=== PATIENT | male | born 1945 | race Caucasian/White ===

== ENCOUNTER → 2017-02-27 | Outpatient (CLI) | payer MEDICARE ==
--- NOTE | 2017-02-27 15:52 | REP ---
Low-dose lung screening CT without IV contrast: Images are presented at lung windowing only needed Comparisons are 03/21/2016, 02/24/2059, 05/21/2012. There are no lung nodules or masses, as previously. There is a new zone of discoid atelectasis versus parenchymal scarring in the right lower lobe as an interval change. There is a small zone of parenchymal scarring/atelectasis at the inferior tip of the lingula, not significantly changed. Impression: There are no lung nodules or masses. Category 1 negative low-dose lung screening CT. Annual low-dose lung screening CT is recommended. There is discoid atelectasis versus parenchymal scarring in the right lower lobe, not present previously. There is a focal zone of chronic atelectasis versus scar at the inferior tip of the lingula, unchanged from prior studies. Signed by Satish Johnson MD 02/27/2017 03:43 P
== END ==
LOC: M RAD 09:45
PROVIDERS: ATTEND Internal Medicine Pulmonary Disease
DX: J43.2 Centrilobular emphysema (principal)

== ENCOUNTER → 2017-10-23 | Outpatient (CLI) | payer MEDICARE | LOC: M RAD 09:27 | DX: I70.203 Unspecified atherosclerosis of native arteries of extremities, bilateral legs (principal) | CPT/HCPCS: 93925 ==

== ENCOUNTER → 2017-11-12 | Outpatient (CLI) | payer MEDICARE ==
[2017-11-12 14:33] LABS: BASO # 0.1 10^3/uL (0.0-0.2); BASO % 1.7 % (0.0-1.0); EOS # 0.3 10^3/uL (0.0-0.50); HEMATOCRIT 44.8 % (42.0-52.0); HEMOGLOBIN 15.8 g/dl (13.5-17.5); IMMATURE GRANULOCYTE % 0.4 % (0-3.0); LYMPH # 1.8 10^3/uL (1.5-4.5); LYMPH % 23.7 % (24.0-44.0); MEAN CORPUSCULAR HGB CONC 35.3 g/dl (32.0-36.5); MEAN CORPUSCULAR VOLUME 93.5 fl (80.0-96.0); MONO # 0.7 10^3/uL (0.0-0.8); MONO % 9.5 % (0.0-5.0); NEUTROPHILS # 4.6 10^3/uL (1.8-7.7); NEUTROPHILS % 60.7 % (36.0-66.0); PLATELET COUNT, AUTOMATED 194 10^3/uL (150-450); RED BLOOD COUNT 4.79 10^6/uL (4.30-6.10); RED CELL DISTRIBUTION WIDTH 13.1 % (11.5-14.5); WHITE BLOOD COUNT 7.6 10^3/uL (4.0-10.0)
[2017-11-12 14:51] LABS: ANION GAP 8 MEQ/L (8-16); BLOOD UREA NITROGEN 18 MG/DL (7-18); CALCIUM LEVEL 9.1 MG/DL (8.8-10.2); CARBON DIOXIDE LEVEL 26 MEQ/L (21-32); CHLORIDE LEVEL 106 MEQ/L (98-107); GLOMERULAR FILTRATION RATE > 60.0 (>42); GLUCOSE, FASTING 139 MG/DL (70-100); POTASSIUM SERUM 4.4 MEQ/L (3.5-5.1); SODIUM LEVEL 140 MEQ/L (136-145)
== END ==
LOC: M LAB 14:02
DX: I70.213 Atherosclerosis of native arteries of extremities with intermittent claudication, bilateral legs (principal); I87.393 Chronic venous hypertension (idiopathic) with other complications of bilateral lower extremity; E08.51 Diabetes mellitus due to underlying condition with diabetic peripheral angiopathy without gangrene
CPT/HCPCS: 80048

== ENCOUNTER → 2017-12-08 | Outpatient (CLI) | payer MEDICARE ==
[~2017-12-08] MED LIST: HEPARIN 1,000 UNITS/ML 10ML VIAL (FOR RADIOLOGY& DIALYSIS ONLY) As Ordered; ISOVUE-300 61% 50ML VIAL (Q9967) As Ordered; MIDAZOLAM INJ 2 MG/2 ML VIAL (J2250) As Ordered; fentaNYL 100 MCG/2 ML INJECTION (J3010) As Ordered
== END | disposition home or self-care (01) ==
LOC: M IRPRO 06:39
DX: I70.244 Atherosclerosis of native arteries of left leg with ulceration of heel and midfoot (principal); L97.429 Non-pressure chronic ulcer of left heel and midfoot with unspecified severity; I70.211 Atherosclerosis of native arteries of extremities with intermittent claudication, right leg; I70.92 Chronic total occlusion of artery of the extremities; E11.9 Type 2 diabetes mellitus without complications; I10 Essential (primary) hypertension; I25.10 Atherosclerotic heart disease of native coronary artery without angina pectoris; J44.9 Chronic obstructive pulmonary disease, unspecified; F17.210 Nicotine dependence, cigarettes, uncomplicated
CPT/HCPCS: 37224

== ENCOUNTER → 2018-02-10 | Outpatient (CLI) | payer MEDICARE | LOC: M RAD 12:56 | DX: I70.0 Atherosclerosis of aorta (principal); I70.203 Unspecified atherosclerosis of native arteries of extremities, bilateral legs | CPT/HCPCS: 93926 ==

== ENCOUNTER → 2018-03-25 | Outpatient (CLI) | payer MEDICARE ==
[~2018-03-25] MED LIST changes: +LIDOCAINE 2% MDV 20 ML VIAL As Ordered
== END | disposition home or self-care (01) ==
LOC: M IRPRO 07:46
DX: L97.529 Non-pressure chronic ulcer of other part of left foot with unspecified severity (principal); L97.519 Non-pressure chronic ulcer of other part of right foot with unspecified severity; I87.2 Venous insufficiency (chronic) (peripheral)
CPT/HCPCS: 36247

== ENCOUNTER → 2018-05-27 | Outpatient (CLI) | payer MEDICARE ==
--- NOTE | 2018-05-27 12:12 | REP ---
Bilateral lower extremity arterial Doppler ultrasound: History: Peripheral vascular disease. Intermittent claudication bilateral legs. Atherosclerosis. Sonographic findings: Ankle brachial index is 0.94 on the right and 0.67 on the left. The dorsalis pedis artery on the right is occluded. There is high velocity flow in the right common femoral artery but triphasic and biphasic relatively normal waveforms are seen throughout the right lower extremity with the exception of the distal posterior tibial artery on the right. The distal anterior tibial artery is occluded on the right. On the left, monophasic arterial wave forms are seen throughout the left lower extremity. There is a 2.8 to 1 stenosis suspected in the left mid superficial femoral artery with a more substantial, 6.8 to 1, stenosis in the popliteal artery on the left. Arterial Doppler velocity chart right lower extremity: Right CF A 8-111 cm/S Profunda 133 Proximal SFA 70 Mid SFA 111 Distal SFA 59 Popliteal 77 Proximal AT A 82 Tibioperoneal trunk 50 Proximal SAP PP CONSULTANT 29 Distal SAP PP CONSULTANT 74 Distal AT A occluded. Arterial Doppler velocity chart, left lower extremity: Left CF A 185 cm/S Profunda 39 Proximal SFA 115 Mid SFA 81-223 Distal SFA 181 - 43 Popliteal 292 Proximal AT A 23 Tibioperoneal trunk 44 Proximal SAP PP CONSULTANT 62 Distal SAP PP CONSULTANT 18 Distal AT A 36 Electronically Signed by Jamal Stevens MD 05/27/2018 12:04 P
== END ==
LOC: M RAD 09:44
PROVIDERS: ATTEND Surgery Vascular Surgery
DX: I70.213 Atherosclerosis of native arteries of extremities with intermittent claudication, bilateral legs (principal)

== ENCOUNTER → 2018-09-17 | Outpatient (CLI) | payer MEDICARE ==
[~2018-09-17] MED LIST changes: +BUPIVACAINE HCL 0.5% 10 ML VIAL As Ordered ONE; -HEPARIN 1,000 UNITS/ML 10ML VIAL (FOR RADIOLOGY& DIALYSIS ONLY) As Ordered; +HEPARIN 1,000 UNITS/ML 10ML VIAL (FOR RADIOLOGY& DIALYSIS ONLY) As Ordered ONE; +ISOVUE-300 61% 100ML VIAL (Q9967) As Ordered ONE; -ISOVUE-300 61% 50ML VIAL (Q9967) As Ordered; -LIDOCAINE 2% MDV 20 ML VIAL As Ordered; +LIDOCAINE 2% MDV 20 ML VIAL As Ordered ONE; -MIDAZOLAM INJ 2 MG/2 ML VIAL (J2250) As Ordered; +MIDAZOLAM INJ 2 MG/2 ML VIAL (J2250) As Ordered ONE; +PROTAMINE SULF INJ 50 MG/5 ML VIAL (J2720) As Ordered ONE; +diphenhydrAMINE INJ 50MG/ML VIAL (J1200) As Ordered ONE; -fentaNYL 100 MCG/2 ML INJECTION (J3010) As Ordered; +fentaNYL 100 MCG/2 ML INJECTION (J3010) As Ordered ONE
[2018-09-17 08:27] LABS: HEMATOCRIT 43.8 % (42.0-52.0); HEMOGLOBIN 14.8 g/dl (13.5-17.5); MEAN CORPUSCULAR HEMOGLOBIN 32.1 pg (27.0-33.0); MEAN CORPUSCULAR HGB CONC 33.8 g/dl (32.0-36.5); PLATELET COUNT, AUTOMATED 203 10^3/uL (150-450); RED BLOOD COUNT 4.61 10^6/uL (4.30-6.10); WHITE BLOOD COUNT 8.7 10^3/uL (4.0-10.0)
[2018-09-17 08:36] LABS: INR 1.01; PROTHROMBIN TIME 13.4 SECONDS (12.1-14.4)
[2018-09-17 08:52] LABS: BLOOD UREA NITROGEN 27 MG/DL (7-18); CARBON DIOXIDE LEVEL 23 MEQ/L (21-32); CHLORIDE LEVEL 109 MEQ/L (98-107); CREATININE FOR GFR 0.96 MG/DL (0.70-1.30); GLOMERULAR FILTRATION RATE > 60.0 (>42); GLUCOSE, FASTING 163 MG/DL (70-100); POTASSIUM SERUM 4.4 MEQ/L (3.5-5.1); SODIUM LEVEL 139 MEQ/L (136-145)
--- NOTE | 2018-10-07 08:30 | REPIR ---
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 PROCEDURE: Right common femoral arterial cannulation, selective left common femoral artery catheter placement angiogram, selective left superficial femoral artery cath placed with angiogram, selective left popliteal artery catheter placement with angiogram, selective left posterior tibial artery catheter placement with angiogram, left common femoral artery angioplasty with 6 x 200 balloon, left superficial femoral artery angioplasty with 6 x 200 balloon, left superficial femoral and popliteal artery angioplasty and stent with a 7 x 120 Sadia drug-eluting stent postdilated with a 7 x 200 balloon, left posterior tibial artery angioplasty with 4 x 200 balloon, MYNX closure of the right common femoral arteriotomy. SURGEON: Dr. Jarek Pedroza. VISCOSE DEPARTMENT WORKER: Peggy Glover and Diego Alcantara. ANESTHESIA: Local with sedation with 2 mg Versed, 100 mcg of fentanyl and 10 mL of 2% lidocaine mixed with 0.5% Marcaine, Benadryl 50 mg. FLUORO TIME: 11.8 minutes. CONTRAST: 8 mL of Isovue 300. HEPARIN: 7000 units. SEDATION TIME: 08:45 a.m. to 09:53 a.m. for a total of 68 minutes. COMPLICATIONS: None. DRAINS: None. SPECIMENS: None. IMPLANTS: 7 x 120 a little Sadia drug-eluting stent in the left superficial femoral and popliteal arteries. INDICATION: The patient is a 73-year-old male with previous angiogram and angioplasty of his left lower extremity due to nonhealing wounds who has had regression of the wounds and nonhealing. The patient will undergo a repeat left lower extremity angiogram with possible angioplasty stent and/or atherectomy. DESCRIPTION OF PROCEDURE: The patient was taken to the angiography suite, placed supine on the angiography room table and then prepped and draped in standard surgical fashion. The right common femoral artery was cannulated with a micropuncture needle. A catheter was advanced up and over the bifurcation, placed in the left common femoral artery and angiogram was performed. Catheter was advanced into the superficial femoral artery and an angiogram was performed. Catheter was advanced into the popliteal artery and an angiogram was performed. Catheter was advanced into the posterior tibial artery and an angiogram was performed. This showed significant disease along the course of the common femoral superficial femoral and popliteal arteries. The common femoral and proximal superficial femoral artery were angioplastied with a 6 x 200 balloon. There was high-grade, near occlusive stenosis in the superficial femoral and popliteal artery and this was angioplastied and stented with a 7 x 120 Sadia drug-eluting stent and post-dilated with 6 x 200 balloon. The posterior tibial artery with angioplastied with a 4 x 200 balloon. Completion angiogram showed resolution of the stenoses with excellent flow into the left lower extremity. A MYNX closure was used close the arteriotomy in the right common femoral artery with an additional 10 minutes of adjunctive pressure applied for hemostasis. Dressings were then applied. The patient tolerated the procedure well. All instrument, sponge, needle counts were correct at the end the case. There were no complications. Dr. Pedroza was present for directed the entire case. The patient was transferred to the holding area and subsequently discharged in stable condition.
== END | disposition home or self-care (01) ==
LOC: M IRPRO 07:44
PROVIDERS: ATTEND Surgery Vascular Surgery
DX: I70.248 Atherosclerosis of native arteries of left leg with ulceration of other part of lower leg (principal); L97.829 Non-pressure chronic ulcer of other part of left lower leg with unspecified severity
CPT/HCPCS: 37226; 37228; 75710; 80048; 85027; 85610; C1725; C1760; C1769; C1874; C1887; C1894; J1200; J2250; J3010; Q9967

== ENCOUNTER → 2018-12-07 | Outpatient (CLI) | payer MEDICARE ==
--- NOTE | 2018-12-07 17:08 | REP ---
Bilateral lower extremity arterial Doppler ultrasound: History: Bilateral claudication. Findings: The ankle brachial index on the right is normal at 1.2. On the left ankle-brachial index is slightly reduced at 0.8. The right distal anterior tibial artery is occluded. Moderate plaquing is observed. The left superficial femoral artery stent is noted to be patent but with evidence of distal stent stenosis suspected. Right lower extremity arterial Doppler velocity chart: Right CF A 178 cm/S Profunda 146 Proximal SFA 114 Mid SFA 98 Distal SFA 64 Popliteal 48 Proximal AT A 59 Tibioperoneal trunk 76 Proximal ASSOCIATE PROFESSOR OF THEATRE 27 Distal ASSOCIATE PROFESSOR OF THEATRE 48 Distal AT A occluded Left lower extremity arterial Doppler velocity chart: Left CF A 141 cm/S Profunda 154 Proximal SFA 147 Mid SFA 130 Distal SFA 51, stent. Popliteal 151 Proximal AT A 58 Tibioperoneal trunk 65 Proximal ASSOCIATE PROFESSOR OF THEATRE 16 Distal ASSOCIATE PROFESSOR OF THEATRE 63 Distal AT A 42 Electronically Signed by Jamal Stevens MD 12/07/2018 05:00 P
== END ==
LOC: M RAD 11:19
PROVIDERS: ATTEND Physician Assistant
DX: I70.213 Atherosclerosis of native arteries of extremities with intermittent claudication, bilateral legs (principal)

== ENCOUNTER → 2019-04-26 | Outpatient (CLI) | payer MEDICARE ==
--- NOTE | 2019-04-26 12:10 | REP ---
BILATERAL LOWER EXTREMITY DUPLEX DOPPLER ARTERIAL ULTRASOUND: Real-time sonographic ultrasound evaluation and duplex Doppler interrogation of bilateral lower extremity arterial systems is performed, and compared to prior study of 12/07/2018. On the right there is again significant scattered plaquing and narrowing, but no evidence of hemodynamically significant stenosis. There is again occlusion of the distal anterior tibial artery. There is no significant change when compared to the prior study. There are monophasic waveforms throughout the posterior tibial artery with biphasic waveforms proximal to that. On the left the distal superficial femoral artery stent is again patent, but there is new increased peak systolic velocity and significant stenosis within the distal end of the stent, peak systolic velocity increased from 30 cm/s to approximately 310 cm/s. There is turbulent flow distal to that site. Monophasic waveforms are seen from the level of the mid left superficial femoral artery distally. Biphasic waveforms are seen in the left common femoral, profunda, and proximal superficial femoral arteries. PEAK SYSTOLIC VELOCITY RIGHT LEFT Common femoral artery 164.0 cm/s 109.0 cm/s Profunda 92.0 117.0 Proximal SFA 74.0 86.0 Superficial femoral artery mid 74.0 145.0 Superficial femoral artery distal 87.0 224.0 Popliteal 68.0 310.0 Proximal anterior tibial artery 46.0 41.0 Tibioperoneal trunk 42.0 50.0 Proximal posterior tibial artery 70.0 45.0 Distal posterior tibial artery 63.0 56.0 Distal anterior tibial artery Occluded 35.0 IMPRESSION: No change in the significant scattered plaque throughout the right lower extremity arterial system, with no evidence of hemodynamically significant stenosis. Patent left distal superficial femoral artery stent with new significant stenosis at the distal end of the stent in the region of the superficial femoral and popliteal arteries. Electronically Signed by Satish Rucker MD 04/26/2019 02:55 P
== END ==
LOC: M RAD 08:51
PROVIDERS: ATTEND Physician Assistant
DX: I70.213 Atherosclerosis of native arteries of extremities with intermittent claudication, bilateral legs (principal); Z98.61 Coronary angioplasty status

== ENCOUNTER → 2019-05-07 | Outpatient (CLI) | payer MEDICARE ==
--- NOTE | 2019-05-07 14:06 | REP ---
Clinical: Lung screening. History smoking. Comparison: 02/27/2017 Technique: Axial low-dose noncontrast images from the thoracic inlet to the upper abdomen using lung screening technique. Findings: The lung cid are well-aerated. No consolidation, significant nodule or mass lesion is appreciated. No pleural effusion/reaction or pneumothorax. Tracheobronchial tree is patent. Mediastinum demonstrates mild atherosclerotic changes of the coronary arteries without cardiomegaly. Impression: Lung-RADS category I. No nodule or suspicious abnormality. Management recommendations include annual low-dose CT evaluation. Electronically Signed by Cristian Ivory MD 05/07/2019 01:57 P
== END ==
LOC: M RAD 13:19
PROVIDERS: ATTEND Internal Medicine Pulmonary Disease
DX: J43.2 Centrilobular emphysema (principal); Z87.891 Personal history of nicotine dependence

== ENCOUNTER → 2019-06-16 | Outpatient (CLI) | payer MEDICARE ==
[~2019-06-16] MED LIST changes: +ASPI81TA26 PO; -BUPIVACAINE HCL 0.5% 10 ML VIAL As Ordered ONE; +CLOP75TA2 PO; +CLOPIDOGREL 75 MG TAB As Ordered ONE; +CLOPIDOGREL 75 MG TAB PO ONE; +INSUH10VL SC; +IPRA0.00 IN; +IPRA0.00 NEB; +IPRA6SP; -ISOVUE-300 61% 100ML VIAL (Q9967) As Ordered ONE; +ISOVUE-300 61% 50ML VIAL (Q9967) As Ordered ONE; +LIDOCAINE 1% MDV 20ML VIAL As Ordered ONE; -LIDOCAINE 2% MDV 20 ML VIAL As Ordered ONE; -PROTAMINE SULF INJ 50 MG/5 ML VIAL (J2720) As Ordered ONE; +RAMI1CAP26 PO; +SIMB1SUS OP; +TRAM50TA2 PO; +TREL1AER PO; +TRES1INJ SC; +VENTAER INH; -diphenhydrAMINE INJ 50MG/ML VIAL (J1200) As Ordered ONE
[2019-06-16 07:09] LABS: HEMATOCRIT 44.2 % (42.0-52.0); HEMOGLOBIN 14.6 g/dl (13.5-17.5); MEAN CORPUSCULAR HEMOGLOBIN 32.2 pg (27.0-33.0); MEAN CORPUSCULAR VOLUME 97.6 fl (80.0-96.0); PLATELET COUNT, AUTOMATED 185 10^3/uL (150-450); RED BLOOD COUNT 4.53 10^6/uL (4.30-6.10); WHITE BLOOD COUNT 8.4 10^3/uL (4.0-10.0)
[2019-06-16 07:48] LABS: ALBUMIN 3.9 GM/DL (3.2-5.2); ALT/SGPT 21 U/L (12-78); BILIRUBIN,TOTAL 0.4 MG/DL (0.2-1.0); BLOOD UREA NITROGEN 30 MG/DL (7-18); CALCIUM LEVEL 9.3 MG/DL (8.8-10.2); CARBON DIOXIDE LEVEL 26 MEQ/L (21-32); CHLORIDE LEVEL 104 MEQ/L (98-107); CREATININE FOR GFR 1.01 MG/DL (0.70-1.30); GLOMERULAR FILTRATION RATE > 60.0 (>42); GLUCOSE, FASTING 144 MG/DL (70-100); POTASSIUM SERUM 4.6 MEQ/L (3.5-5.1); SODIUM LEVEL 138 MEQ/L (136-145); TOTAL PROTEIN 7.7 GM/DL (6.4-8.2)
--- NOTE | 2019-06-16 09:47 | ROOPDOC ---
[facility] Report Of Operation Report of Operation DATE OF PROCEDURE: 06/16/19 PREPROCEDURE DIAGNOSES: Atherosclerosis the needed vessels with nonhealing wound left heel. POSTPROCEDURE DIAGNOSES: Same. PROCEDURE: 1. Ultrasound-guided access right common femoral artery 2. Aortoiliofemoral arteriogram, and left lower extremity runoff from selection of left common femoral artery 3. Angioplasty left superficial femoral artery and popliteal artery was 6 x 200 Mounds balloon 4. Crossed total occlusion proximal left popliteal artery and placement of left SFA-proximal popliteal artery stent 5 x 100 Innova 5. Mid left SFA stent placement 6 x 100 Innova 6. Post-dilation left SFA and popliteal stents with 6 x 200 Mounds balloon 7. Crossing chronic total occlusion left posterior tibial artery and angioplasty with 2.5 x 220 Lino balloon 8. Completion arteriograms SURGEON: Jg Ferguson MD ANESTHESIA: Local anesthesia 7 mL lidocaine. Moderate intravenous conscious sedation was supervised by Dr. Ferguson. The patient was independently monitored by registered nurse a sign of the Department of radiology using automated blood pressure, EKG, and pulse oximetry. The details sedation record is permanently stored in the hospital information system. The brief sedation record is as follows: Start time 07:46, stop time 09:15, Versed 1 mg IV, fentanyl 50 g IV, heparin 5000 units IV. CONTRAST: 63 mL of Isovue-300 INDICATION FOR PROCEDURE: Mr. Foss is a very pleasant 73-year-old gentleman with known severe peripheral vascular disease status post left distal SFA stent placement by Dr. Pedroza in the past along with angioplasties repeatedly, who returns with recurrent stenosis in the left SFA, popliteal artery, and a nonhealing wound on his left heel. Risks benefits alternatives to an arteriogram potential intervention were explained to the patient and he was agreeable to proceed. Informed consent was obtained. INTERPRETATION: 1. The aortoiliofemoral segments are widely patent, but there is angulated tortuosity to the vessels. There is mild ectasia but no significant stenoses noted in the iliac segments. 2. The left common femoral artery has some ectasia and plaque, but no flow- limiting stenoses is present. The profundus patent. The SFA is ectatic throughout, and didn't the midportion proximal to the existing stent there is 50-90% stenoses segmentally. The stent is patent, but just distal to the stent in the proximal popliteal artery there is a focal occlusion with reconstitution through collateral circulation. 3. The tibial vessels have mild disease throughout, but the posterior tibial artery has 2 focal occlusions in the midportion. It is small and diminutive in size as well. There is flow distal to the occlusions through collateral circulation that provides sluggish flow to the pedal runoff. The anterior tibial arteries the best runoff to the foot. The peroneal artery is diminutive but patent. The tibioperoneal trunk is mildly stenotic as well. 4. After angioplasty and stenting of the SFA and popliteal artery, there is widely patent flow with no significant residual flow-limiting stenosis, and no embolization extravasation or dissection. 5. After angioplasty of the tibioperoneal trunk and the posterior tibial artery all the way to the ankle, there is less than 20% residual stenoses at the areas of occlusion but they are not flow-limiting. There is rapid flow to the foot and the pedal vessels fill well. REPORT OF OPERATION: The patient was brought to the angiographic suite in stable condition. His bilateral groins were prepped and draped in sterile fashion. A timeout was performed. Sedation was ministered without compensation. Local anesthesia was administered to skin and subcutaneous tissue over the right groin. A microneedle was used to access the right common femoral artery under ultrasound guidance. A wire was passed through this access under fluoroscopic guidance the needle was removed and a micro-sheath was placed over the wire using a Seldinger technique. The inner cannula and wire were removed and a Glidewire was advanced into the aorta under fluoroscopic guidance. The sheath was exchanged over the wire for a 6 Libyan sheath and flushed with saline. We then advanced a contra catheter over the wire into the distal aorta and in aortoiliofemoral arteriogram was performed. Please interpretation above. Due to the angles at the aortic bifurcation and in the left iliac system, it took quite a bit of time to advance the wire up and over the bifurcation into the left femoral system. Eventually, we were able to navigate the wire and advance the catheter. We then exchange the wire for an Amplatz superstiff wire and exchange the sheath for a 6 Fr destination sheath over the wire. The sheath was flushed with saline. After selecting the left common femoral artery runoff of the left lower extremity was performed. Please interpretation above. We then utilized a Glidewire and aerobic on catheter to cross through the SFA and the occlusion in the popliteal artery. Once safely cross to the tibial vessels, we angioplasty the proximal popliteal artery and the entire SFA with a 6 x 200 Mounds balloon for three-minute inflations. Following this, there was a marked improvement in flow in the proximal SFA with no residual stenoses dissections or flow limitation, therefore we elected not to stent the proximal SFA. There was a few areas of near occlusion in the mid SFA proximal to the existing stent which still had some flow limitation due to bulky plaque and therefore we placed a 6 x 100 Innova stent across this area with a 2 cm overlap in her existing stent. Distally, due to the more diminutive size of the popliteal artery below the knee, we placed a 5 x 100 Innova stent with overlap into the existing distal SFA stent. We then post-dilated both stance with a 6 x 200 Innova balloon. Following this, there was widely patent flow through the SFA and popliteal artery into the tibial system and no embolization extravasation or dissection were noted. We then advanced a Glidewire into the posterior tibial artery and placed aerobic on catheter over the Glidewire. We then exchange the wire for an O18 Glidewire advantage and advance this down into the distal posterior tibial artery across the ankle into the pedal vessels. We then angioplasties from the ankle to the popliteal artery and sequential angioplasties with a 2.5 x 220 Lino balloon for three-minute inflations. Following this, there is a marked improvement in flow in the posterior tibial artery and 3 vessel runoff to the foot which hopefully will help with the patient's wound healing of his left heel. The Kristyn is some for the heel is supplied by the posterior tibial artery. This concluded her procedure. R completion arteriogram showed excellent flow with no embolization extravasation or dissection. We then exchange the wire for an O35 Glidewire and exchange her sheath for short 6 Libyan sheath, and then deployed and Mynx closure device with good hemostasis. Pressure was held for 10 minutes and the patient was then taken to recovery in stable condition. ESTIMATED BLOOD LOSS: Approximately 7 mL. COMPLICATIONS: None. PLAN: We will see the patient back in a week to check his groin access site and how he is doing. We did discuss best options for wound healing, including high- protein diet excellent wound care and offloading. Hopefully the additional blood flow will be helpful to finally get his left heel to heal. We will give him a Plavix in recovery today and he will resume his Plavix dose is normal tomorrow. He can resume all his home medications. JG FERGUSON MD Jun 16, 2019 09:47
[2019-06-16 13:30] VITALS: BP 155/86
== END ==
LOC: M IRPRO 06:24
PROVIDERS: ATTEND Surgery Vascular Surgery
DX: I70.245 Atherosclerosis of native arteries of left leg with ulceration of other part of foot (principal); L97.429 Non-pressure chronic ulcer of left heel and midfoot with unspecified severity; I70.92 Chronic total occlusion of artery of the extremities
CPT/HCPCS: 37226; 37228; 37232; 75710; 80053; 85027; 99152; 99153; C1725; C1729; C1760; C1769; C1876; C1887; C1894; J2250; J3010; Q9967

== ENCOUNTER → 2019-07-19 | Outpatient (CLI) | payer MEDICARE ==
[~2019-07-19] MED LIST changes: -CLOPIDOGREL 75 MG TAB As Ordered ONE; -CLOPIDOGREL 75 MG TAB PO ONE; -HEPARIN 1,000 UNITS/ML 10ML VIAL (FOR RADIOLOGY& DIALYSIS ONLY) As Ordered ONE; -ISOVUE-300 61% 50ML VIAL (Q9967) As Ordered ONE; -LIDOCAINE 1% MDV 20ML VIAL As Ordered ONE; -MIDAZOLAM INJ 2 MG/2 ML VIAL (J2250) As Ordered ONE; -fentaNYL 100 MCG/2 ML INJECTION (J3010) As Ordered ONE
--- NOTE | 2019-07-19 14:48 | REP ---
Bilateral lower extremity arterial Doppler ultrasound: History: Atherosclerosis with intermittent claudication history of nicotine dependence. Sonographic findings: Ankle brachial indices are normal bilaterally measured at 1.36 on the right and the left. The right dorsalis pedis is occluded. The right distal anterior tibial artery is occluded and revascularized. There is a distal SFA through popliteal artery stent on the left. This appears to be patent. Moderate bilateral plaquing is seen. Right lower extremity arterial Doppler velocity chart: Right CF A 66 cm/S Profunda 97 Proximal SFA 100 Mid SFA 86 Distal SFA 57 Popliteal 46 Proximal AT A 12 Tibioperoneal trunk 49 Proximal GROUNDS WORKER 43 Distal GROUNDS WORKER 55 Distal AT A occluded / 9.3 Left lower extremity arterial Doppler velocity chart: Left CF A 90 cm/S Profunda 69 Proximal SFA 113 Mid SFA 91 Distal SFA 33 eight Popliteal 73 Proximal AT A 85 Tibioperoneal trunk 85 Proximal GROUNDS WORKER 62 Distal GROUNDS WORKER 57 Distal AT A 62 Electronically Signed by Jamal Stevens MD 07/19/2019 02:41 P
== END ==
LOC: M RAD 12:38
PROVIDERS: ATTEND Physician Assistant
DX: I70.213 Atherosclerosis of native arteries of extremities with intermittent claudication, bilateral legs (principal); Z87.891 Personal history of nicotine dependence

== ENCOUNTER → 2020-02-10 | Outpatient (CLI) | payer MEDICARE ==
--- NOTE | 2020-02-29 14:24 | REP ---
BILATERAL LOWER EXTREMITY DUPLEX DOPPLER ARTERIAL ULTRASOUND: TECHNIQUE: Real time ultrasound evaluation and duplex Doppler interrogation of the bilateral lower extremity arterial system is performed. FINDINGS: TRACIE bilaterally is 1.0. In the right lower extremity, there is significant plaquing throughout the common femoral artery, superficial femoral artery and popliteal artery with mild multifocal stenosis, approximately 2:1 in these areas. There are diffuse biphasic wave forms in these arterial structures. Below the level of the popliteal artery, there are monophasic wave forms with diffuse trickle flow. The left lower extremity demonstrates moderate plaque in the common femoral artery. Patent stents are seen in the proximal superficial femoral artery extending through the popliteal artery. There is no significant stenosis intraluminally within the stent, however monophasic wave forms are seen throughout the stent. Triphasic wave form is seen in the left common femoral artery. There are monophasic wave forms in the left calf arteries with heavily calcified vessels diffusely in the left calf. VELOCITY CHART PSV RIGHT (cm/s) PSV LEFT (cm/s) Common femoral artery 151 98.0 Profunda 101 102 Proximal SFA 88 102 Mid-SFA 123 110 Distal SFA 102 55 Popliteal 65 55 Proximal HERMAN 10 66 Tibioperoneal trunk 85 94 Proximal ENVIRONMENTAL SERVICES WORKER 34 55 Distal ENVIRONMENTAL SERVICES WORKER 49 64 Distal HERMAN 11 35 MTDD
== END ==
LOC: M RAD 07:08
PROVIDERS: ATTEND Physician Assistant
DX: I70.213 Atherosclerosis of native arteries of extremities with intermittent claudication, bilateral legs (principal)

== ENCOUNTER → 2020-04-24 | Outpatient (CLI) | payer MEDICARE ==
--- NOTE | 2020-04-24 10:38 | REP ---
INDICATION: ATHSCL IGIUGIG ARTERIES OF EXT W/INTRMT IGNACIO COMPARISON: 02/10/2020 as well as other prior exams. TECHNIQUE: Real time rucker scale and Duplex Doppler evaluation of the bilateral lower extremity arterial vasculature using linear high frequency transducer. FINDINGS: Rucker scale and duplex doppler images demonstrate significant plaque diffusely bilaterally. Multifocal mild stenosis is noted once again in the right lower extremity, less than 2-1. Biphasic waveforms are seen through the popliteal artery, with monophasic waveforms in the lower the right leg. Anterior tibial artery is not visualized on today's exam. Slight increase in luminal narrowing is suspected of the right lower extremity arterial structures compared to the prior study. On the left there are diffuse monophasic waveforms. There is a patent stent in the superficial femoral and popliteal arteries. No focal stenosis is seen, with no significant change compared to the prior study. Peak systolic velocities (cm/sec) Common femoral artery: Right 152; Left 93 Profunda femoris: Right 139; Left 117 SFA (proximal): Right 94; Left 97 SFA (mid): Right 93; Left 99 SFA (distal): Right 71; Left 32 Popliteal artery: Right 53; Left 73 HERMAN (prox.): Right not seen; Left 53 Tibioperoneal trunk: Right 74; Left 64 SHEET METAL ENGINEER (prox.): Right 119; Left 49 SHEET METAL ENGINEER (distal): Right in 72; Left 57 HERMAN (distal): Right not seen; Left 31 IMPRESSION: Compared to the prior study slight increased luminal narrowing suspected of the right lower extremity arterial structures as discussed above. No significant change left lower extremity arterial structures with patent stent in the superficial femoral and popliteal arteries. <Electronically signed by Satish Rucker > 04/24/20 [id number]
== END ==
LOC: M RAD 07:49
PROVIDERS: ATTEND Physician Assistant
DX: I70.213 Atherosclerosis of native arteries of extremities with intermittent claudication, bilateral legs (principal); I70.245 Atherosclerosis of native arteries of left leg with ulceration of other part of foot

== ENCOUNTER → 2020-05-10 | Outpatient (CLI) | payer MEDICARE ==
[~2020-05-10] MED LIST changes: +FLOM0.4C39 PO; +ISOVUE-300 61% 50ML VIAL As Ordered ONE; +LIDOCAINE 1% MDV 20ML VIAL As Ordered ONE; +MIDAZOLAM INJ 2MG/2ML VIAL (J2250 PER 1MG) As Ordered ONE; +fentaNYL 100 MCG/2 ML INJECTION (J3010) As Ordered ONE
[2020-05-10 08:59] LABS: HEMATOCRIT 41.9 % (42.0-52.0); HEMOGLOBIN 14.1 g/dl (13.5-17.5); MEAN CORPUSCULAR HGB CONC 33.7 g/dl (32.0-36.5); MEAN CORPUSCULAR VOLUME 95.2 fl (80.0-96.0); PLATELET COUNT, AUTOMATED 196 10^3/uL (150-450); WHITE BLOOD COUNT 6.7 10^3/uL (4.0-10.0)
[2020-05-10 09:39] LABS: BLOOD UREA NITROGEN 26 MG/DL (7-18); CALCIUM LEVEL 8.9 MG/DL (8.8-10.2); CARBON DIOXIDE LEVEL 25 MEQ/L (21-32); CHLORIDE LEVEL 107 MEQ/L (98-107); CREATININE FOR GFR 0.96 MG/DL (0.70-1.30); GLOMERULAR FILTRATION RATE > 60.0 (>42); GLUCOSE, FASTING 183 MG/DL (70-100); POTASSIUM SERUM 4.1 MEQ/L (3.5-5.1); SODIUM LEVEL 138 MEQ/L (136-145)
--- NOTE | 2020-05-10 11:42 | ROOPDOC ---
[facility] Report Of Operation Report of Operation DATE OF PROCEDURE: 05/10/20 PREPROCEDURE DIAGNOSES: Atherosclerosis of the [place] arteries with non-healing wound left heel POSTPROCEDURE DIAGNOSES: Same PROCEDURE: 1. Ultrasound-guided access right common femoral artery 2. Aortoiliofemoral arteriogram 3. Selection left common femoral artery and left lower extremity runoff 4. Cross occlusion left popliteal artery with distal popliteal selection and tibial runoff 5. Angioplasty left popliteal artery and superficial femoral artery with 6 x 200 Stock[place] balloon 6. Angioplasty left anterior tibial artery with 2.5 x 220 Lino balloon 7. Completion arteriogram 8. Mynx closure right common femoral artery SURGEON: Jg Ferguson MD ANESTHESIA: Local anesthesia 3 mL lidocaine. Moderate intravenous conscious sedation was supervised by Dr. Ferguson. The patient was independently monitored by a registered nurse assigned to the Department of radiology using automated blood pressure, EKG, and pulse oximetry. The details sedation record is permanently stored in the hospital information system. The following is a presedation record: Start time 10:16, stop time 11:25, Versed 1 mg IV, fentanyl 50 g IV, heparin 4000 units IV. CONTRAST: 48 mL Isovue-300 INDICATION FOR PROCEDURE: This is a very pleasant 74-year-old gentleman with long-standing peripheral vascular disease is developed a nonhealing wound on the left heel. He has a history of intervention in the past. Risks benefits and alternatives to an arteriogram and potential intervention were explained to the patient and he was agreeable to proceed. Informed consent was obtained. INTERPRETATION: 1. The aorta is widely patent and there is a patent bifurcation into the bilateral common iliac arteries, but it is a narrow bifurcation and there is a lot of tortuosity in the left iliac system. The right common iliac artery, hypogastric artery, external iliac artery are mildly ectatic but overall widely patent with no flow-limiting stenoses. The left common iliac artery, hypogastric artery, external iliac artery are ectatic but widely patent overall with no significant stenosis. There is a lot of tortuosity in the left iliac system. 2. The left common femoral arteries widely patent with good flow into the profunda and the SFA proximally. There is diffuse narrowing throughout the pre- existing mid to distal SFA stent extending into the proximal popliteal artery. Some areas are only 20-30% stenotic, others 50-60% stenotic, but there is a focal area of occlusion in the proximal popliteal artery and the existing stent. Mild stenosis is noted distal to the stent in the mid popliteal artery, 20-30% stenosis, and then the distal popliteal arteries widely patent. There is excellent runoff into left patent posterior tibial artery which arises from a true bifurcation with the left anterior tibial artery. The peroneal artery is diminutive in size and arises a few centimeters from the origin of the anterior tibial artery. The anterior tibial artery itself has some notable plaque and stenosis in the proximal half of the vessel including the origin. Distally, there is flow into dorsal pedis artery that is patent but a bit tortuous and diminutive. There is a large collateral that comes off the posterior tibial at t he ankle and crosses over and supplies additional blood flow to the mid foot. The posterior tibial artery on the left is large, and has great runoff into the foot. 3. After angioplasty of the superficial femoral artery and popliteal artery, widely patent flow with no significant residual stenosis was noted. No embolization dissection extravasation were noted. 4. After angioplasty of the proximal half of the anterior tibial artery including the origin, there is widely patent flow with no embolization dissect ion or extravasation noted. The patient has widely patent 3 vessel runoff at case close. REPORT OF OPERATION: The patient was brought to the angiographic suite in stable condition. His bilateral groins were prepped and draped in a sterile fashion. A timeout was performed. Local anesthesia was a job analyst to the skin and subcutaneous tissue over the right groin. Sedation was administered without complication. A microneedle was used to access the right common femoral artery under ultrasound guidance. A wire was passed through this access needle was removed and a 4 Estonian sheath was placed and flushed with saline. A Glidewire and flushing catheter were advanced into the distal aorta. Aortoiliofemoral arteriogram for performed. Please see interpretation above. We then attempted to go up and over the bifurcation with a stiff Glidewire in the catheter, but due to the tortuous nature of the left iliac system, this proved extremely challenging. We then exchange the wire for a floppy Glidewire and were able to advance his into the distal SFA. We still could not advance the catheter due to the tortuosity, so weak stage the catheter for a glide cath and we were able to advance this into the common femoral artery on the left. We then exchange the wire for an Amplatz superstiff wire and advanced this into the distal left SFA. We then exchange the sheath over the wire for a 6 x 45 destination sheath and flushed the sheath with saline. We then exchange the wire again for the original stiff Glidewire. We were able to cross through to the distal popliteal artery through the occlusion, and we then angioplastied with a 6 x 200 Stockton balloon from the mid popliteal artery through to the mid SFA stents. After three-minute inflations, we still noted a little bit of residual stenosis in the mid popliteal artery and at the proximal stents, and repeat angioplasty was performed. Following this, there is widely patent inflow through the stent in the popliteal artery into the distal vessels. We then exchange the wire for 018 Glidewire advantage and advance this down to the popliteal artery. We had trouble crossing into the anterior tibial artery due to plaque at the origin. A glide cath was advanced over the wire the wire was removed and a quick tibial arteriogram was performed. Following this, we were able to direct the wire and the origin of the anterior tibial artery safely and cross through to the distal vessel. A 2.5 x 220 Lino balloon was used angioplasty the proximal and mid left anterior tibial artery for three-minute inflations following this the patient had widely patent 3 vessel runoff to the foot. Although the peroneal artery is diminutive it is patent. There is no embolization dissection or extravasation noted. We then exchange the sheath over an O35 wire for short 6 Estonian sheath in a Mynx closure device was deployed without convocation. Good hemostasis was noted. Pressure was held for 5 minutes and sterile dressings were applied. The patient was taken to recovery in stable condition. He tolerated the sedation and the procedure well. ESTIMATED BLOOD LOSS: Approximately 2 mL. COMPLICATIONS: None. PLAN: We will see the patient back in a week to check his groin access site and his perfusion. Okay to resume home diet and medications. No lifting greater than 10 pounds or strenuous exercise for 72 hours. Okay to resume Plavix in the morning. We appreciate the opportunity to participate in the care of this patient. JG FERGUSON MD May 10, 2020 11:42
[2020-05-10 14:30] VITALS: BP 156/83
== END ==
LOC: M IRPRO 08:07
PROVIDERS: ATTEND Surgery Vascular Surgery
DX: I70.248 Atherosclerosis of native arteries of left leg with ulceration of other part of lower leg (principal); I70.213 Atherosclerosis of native arteries of extremities with intermittent claudication, bilateral legs; L97.429 Non-pressure chronic ulcer of left heel and midfoot with unspecified severity; I70.92 Chronic total occlusion of artery of the extremities; I77.1 Stricture of artery; E11.51 Type 2 diabetes mellitus with diabetic peripheral angiopathy without gangrene; F32.9 Major depressive disorder, single episode, unspecified; F41.9 Anxiety disorder, unspecified; I11.0 Hypertensive heart disease with heart failure; I25.10 Atherosclerotic heart disease of native coronary artery without angina pectoris; J44.9 Chronic obstructive pulmonary disease, unspecified; M19.90 Unspecified osteoarthritis, unspecified site; Z79.82 Long term (current) use of aspirin; Z79.899 Other long term (current) drug therapy; Z88.0 Allergy status to penicillin; Z88.8 Allergy status to other drugs, medicaments and biological substances
CPT/HCPCS: 37224; 37228; 75630; 80048; 85027; 99152; 99153; C1725; C1729; C1760; C1769; C1887; C1894; J1644; J2250; J3010; Q9967

== ENCOUNTER → 2020-07-24 | Outpatient (CLI) | payer MEDICARE ==
[~2020-07-24] MED LIST changes: -ISOVUE-300 61% 50ML VIAL As Ordered ONE; -LIDOCAINE 1% MDV 20ML VIAL As Ordered ONE; -MIDAZOLAM INJ 2MG/2ML VIAL (J2250 PER 1MG) As Ordered ONE; -fentaNYL 100 MCG/2 ML INJECTION (J3010) As Ordered ONE
--- NOTE | 2020-07-24 16:10 | REP ---
INDICATION: ATHSCL ARTERIES VERONICA W/ CLAUDICATION. On May 10, 2020 the patient underwent left popliteal artery and cyst left superficial femoral artery angioplasty and left anterior tibial artery angioplasty. COMPARISON: Comparison study April 24, 2020.. TECHNIQUE: Bilateral lower extremity arterial Doppler ultrasound: FINDINGS: The ankle brachial indices could not be obtained due to calcified noncompressible vessels and left ankle edema. Extensive plaquing is observed bilaterally. Monophasic waveforms are noted at and distal to the distal superficial femoral artery on the right and throughout the visualized left lower extremity arterial tree. Multiple mild stenoses are seen in the left lower extremity. A 7-1 velocity is the ratio stenosis is observed in the distal left posterior tibial artery. Right lower extremity arterial Doppler velocity chart: Distal aorta PSV 62 cm/S Right common iliac artery PSV 92 cm/S Right EIA PSV 176 cm/S RESPIRATORY CARE INSTRUCTOR 124 Profundal 138 Proximal SFA 108 Mid SFA 83/112 Distal SFA 50 Popliteal 76 Proximal HERMAN 17 Tibial-peroneal trunk 52 Proximal AREA CLEANER 27 Distal AREA CLEANER 87 Distal HERMAN not seen Left lower extremity arterial Doppler velocity chart: Distal aorta PSV 62 cm/S Left SHE PSV 86 cm/S Left EIA 142 Left RESPIRATORY CARE INSTRUCTOR 147 Profundal 204 Proximal SFA 101/130 Mid SFA 88 Distal SFA 98/127/50 Popliteal 140/172 patent stent. Proximal HERMAN 105 Tibial-peroneal trunk 99 Proximal AREA CLEANER 16 Distal AREA CLEANER 112 Distal HERMAN 55 IMPRESSION: Atherosclerotic disease as noted above. Monophasic waveforms throughout the left lower extremity and below the distal SFA on the right. Multiple stenoses seen on the left. No occlusion is seen on the left. Distal anterior tibial artery on the right not seen. <Electronically signed by Patricio Stevens > 07/24/20 [id number]
== END ==
LOC: M RAD 09:38
PROVIDERS: ATTEND Surgery Vascular Surgery
DX: I70.213 Atherosclerosis of native arteries of extremities with intermittent claudication, bilateral legs (principal); I86.8 Varicose veins of other specified sites

== ENCOUNTER → 2021-01-09 | Outpatient (CLI) | payer MEDICARE ==
--- NOTE | 2021-01-09 12:22 | REP ---
INDICATION: HX OF NICOTINE DEPENDENCE. COMPARISON: Low-dose lung screening chest CTs dated 03/21/2016, 02/27/2017 and 05/07/2019. TECHNIQUE: The study is performed without IV contrast. Images are presented at lung windowing only. FINDINGS: There no lung masses or nodules. There are no infiltrates or pleural effusions. The discoid atelectasis identified in the left lower lobe on 02/27/2017 has resolved. The small focal zone of atelectasis at the inferior tip of the lingula identified on 02/27/2017 has resolved. IMPRESSION: Category [address] low-dose lung screening CT of the chest. There are no lung nodules or masses. Depending on risk factors annual follow-up low-dose lung screening CT of the chest is recommended. <Electronically signed by Satish Johnson > 01/09/21 [id number]
== END ==
LOC: M RAD 11:35
PROVIDERS: ATTEND Internal Medicine Pulmonary Disease
DX: Z12.2 Encounter for screening for malignant neoplasm of respiratory organs (principal); Z87.891 Personal history of nicotine dependence

== ENCOUNTER → 2021-02-26 | Outpatient (CLI) | payer MEDICARE ==
--- NOTE | 2021-02-26 10:20 | REP ---
INDICATION: ATHSCL R[place]-SPARKS ARTERIES. COMPARISON: July 24, 2020. TECHNIQUE: Bilateral lower extremity arterial Doppler sonography. FINDINGS: Ankle brachial indices could not be performed due to calcified vessels and ankle swelling. The right anterior tibial artery is occluded. There is a 2-1 velocity ratio stenosis in the right posterior tibial artery. Monophasic arterial Doppler waveforms are noted at and distal to the right popliteal artery. On the left monophasic arterial Doppler waveforms are noted throughout the leg distal to the proximal superficial femoral. There is a 9-1 velocity ratio stenosis in the left popliteal artery. Patient reports 3 stents in the left popliteal artery. Right lower extremity arterial Doppler velocity chart: Right FORMS BUILDER PSV 140 cm/S Profundal 111 Proximal SFA 107 Mid SFA 80 Distal SFA 52 Popliteal 77 Proximal HERMAN occluded Tibial-peroneal trunk 60 Proximal ACCELERATOR SYSTEMS DIRECTOR 30 Distal ACCELERATOR SYSTEMS DIRECTOR 61 Distal HERMAN occluded Left lower extremity arterial Doppler velocity chart: Left FORMS BUILDER PSV 91 cm/S Profundal 96 Proximal SFA 88 Mid SFA 82 Distal SFA 39 Popliteal 56/497/173 Proximal HERMAN 84 Tibial-peroneal trunk 72 Proximal ACCELERATOR SYSTEMS DIRECTOR 40 Distal ACCELERATOR SYSTEMS DIRECTOR 62 Distal HERMAN 50 IMPRESSION: Heavily calcified vessels. Occlusion of the right anterior tibial artery. Evidence of high-grade stenosis in the popliteal segment on the left. <Electronically signed by Patricio Stevens > 02/26/21 1018
== END ==
LOC: M RAD 08:30
PROVIDERS: ATTEND Surgery Vascular Surgery
DX: I70.213 Atherosclerosis of native arteries of extremities with intermittent claudication, bilateral legs (principal)

== ENCOUNTER → 2021-03-22 | Outpatient (CLI) | payer MEDICARE ==
[~2021-03-22] MED LIST changes: +ISOVUE-300 61% 50ML VIAL As Ordered ONE; +LIDOCAINE 1% MDV 20ML VIAL As Ordered ONE; +MIDAZOLAM INJ 2MG/2ML VIAL (J2250 PER 1MG) As Ordered ONE; +NS 1,000 ML IV SCH; +fentaNYL 100 MCG/2 ML INJECTION (J3010) As Ordered ONE
[2021-03-22 12:32] LABS: BLOOD UREA NITROGEN 18 MG/DL (7-18); CALCIUM LEVEL 8.9 MG/DL (8.8-10.2); CARBON DIOXIDE LEVEL 27 MEQ/L (21-32); CHLORIDE LEVEL 109 MEQ/L (98-107); CREATININE FOR GFR 0.87 MG/DL (0.70-1.30); GLOMERULAR FILTRATION RATE > 60.0 (>42); GLUCOSE, FASTING 193 MG/DL (70-100); POTASSIUM SERUM 4.4 MEQ/L (3.5-5.1); SODIUM LEVEL 140 MEQ/L (136-145)
--- NOTE | 2021-03-22 16:01 | ROOPDOC ---
[facility] Report Of Operation Report of Operation DATE OF PROCEDURE: 03/22/21 PREPROCEDURE DIAGNOSES: Nonhealing left heel ulcer POSTPROCEDURE DIAGNOSES: Nonhealing left heel ulcer PROCEDURE PERFORMED: 1. Left distal SFA atherectomy and Angioplasty with Drug Coated Balloon 2. Selective Catheterization, initial, 3rd order 3. Left leg Angiogram 4. Ultrasound Guided Percutaneous Entry SURGEON: Risa Castellon MD ANESTHESIA: Local and sedation ESTIMATED BLOOD LOSS: Approximately 10 mL. COMPLICATIONS: None FINDINGS: Improved flow to foot DESCRIPTION OF PROCEDURE: Patient was brought to the IR suite and placed on the IR table in supine position. No recent angiographic images of the aorta or extremity were performed and therefore a diagnostic angiogram was performed prior to any endovascular intervention. After anesthesia was administered, the patient's groins were prepped and draped in standard surgical fashion. Under ultrasound guidance, percutaneous entry into the right common femoral artery was performed with a micropuncture needle. Over guidewire exchange a microsheath was inserted and a 0.035" Glidewire was passed into the aorta. The microsheath was then exchanged for 5 Fr sheath and a flush catheter was passed through the sheath and into the aorta. An aortogram was performed and revealed patent bilateral renal arteries, normal sized aorta and patent bilateral iliac artery runoff. The aortic bifurcation was engaged and the Glidewire and catheter were passed to the distal left external iliac artery. Serial angiography of the leg was then performed and revealed a patent common femoral artery, profunda femoris artery and proximal superficial femoral artery. The catheter was then advanced into the proximal SFA and angiography revealed a multiple stent placement from the proximal SFA to mid popliteal artery (just above the tibial plateau) with near occlusive in-stent restenosis at the entrance to Jeremy's canal. Below the knee, there was a 3 vessel runoff to the foot via the posterior tibial artery being the main outflow vessel. The patient was administered a bolus of IV Heparin and additional doses were given throughout the case to ensure adequate anticoagulation. Over guidewire exchange and with fluoroscopic guidance the short 5 Fr sheath was replaced with a long 6 Fr Evangelist sheath and crossing catheter. Using the crossing catheter and guidewire, the SFA occlusion was traversed and the wire and catheter were placed in the proximal posterior tibial artery. The guidewire was exchanged for a 6mm Spider filter and placed in the same location. The guiding catheter was then removed and exchanged for a Medtronic atherectomy device. Atherectomy in all four quadrants of the diseased segment of the distal SFA was performed. Repeat angiography revealed moderate improvement but with some persistent disease. The spider filter was exchanged for the 0.035 Glidewire and angioplasty of the diseased SFA was performed with a 6 mm x 80 mm Medtronic Drug Coated Balloon. Post-angioplasty angiography revealed resolution of the treated segment with brisk flow through the treated segment and good flow into the foot. No further intervention was performed. Over fluoroscopic guidance, the sheath was retracted over the aortic bifurcation and removed. A Perclose closure device was then used to close the puncture site and a sterile dressing was then placed. RISA CASTELLON MD Mar 22, 2021 16:01
[2021-03-22 17:45] VITALS: BP 141/77
== END ==
LOC: M IRPRO 11:18
PROVIDERS: ATTEND Surgery Vascular Surgery
DX: I70.245 Atherosclerosis of native arteries of left leg with ulceration of other part of foot (principal); L97.429 Non-pressure chronic ulcer of left heel and midfoot with unspecified severity; Z79.82 Long term (current) use of aspirin; Z88.0 Allergy status to penicillin; Z88.8 Allergy status to other drugs, medicaments and biological substances
CPT/HCPCS: 37225; 75630; 75774; 80048; 99152; 99153; C1714; C1760; C1769; C1884; C1887; C1894; C2623; J1642; J1644; J2250; J3010; Q9967

== ENCOUNTER → 2021-04-25 | Outpatient (CLI) | payer MEDICARE ==
[~2021-04-25] MED LIST changes: -ISOVUE-300 61% 50ML VIAL As Ordered ONE; -LIDOCAINE 1% MDV 20ML VIAL As Ordered ONE; -MIDAZOLAM INJ 2MG/2ML VIAL (J2250 PER 1MG) As Ordered ONE; -NS 1,000 ML IV SCH; -fentaNYL 100 MCG/2 ML INJECTION (J3010) As Ordered ONE
--- NOTE | 2021-04-25 14:31 | REP ---
INDICATION: ATHEROSCLEROSIS, PVD COMPARISON: None. TECHNIQUE: Real-time sonographic evaluation of the lower extremity arteries with Doppler bilateral FINDINGS: All numeric values represent peak systolic velocities in cm/SEC On the right: LABEL DRIER: 107.8 triphasic Profunda: 101.1 biphasic SFA proximal: 67.9 biphasic SFA mid: 74.2 biphasic SFA distal: 27.6 biphasic Popliteal: 46.5 biphasic Tibioperoneal trunk: 62.5 biphasic OPERATIONS PROFESSIONAL proximal: 95.8 biphasic OPERATIONS PROFESSIONAL distal: 72.8 biphasic Peroneal proximal: 87.3 biphasic Peroneal distal: Not seen HERMAN proximal: 17.8 monophasic HERMAN distal occluded On the left: LABEL DRIER: 105.8 biphasic Profunda: 93.3 triphasic SFA proximal: 91.5 biphasic SFA mid: 121.1 biphasic SFA distal: 43.9 biphasic Popliteal: 101.6 biphasic Tibioperoneal trunk: 80.0 biphasic OPERATIONS PROFESSIONAL proximal: 67.2 biphasic OPERATIONS PROFESSIONAL distal: 89.0 biphasic Peroneal proximal: 103.5 biphasic Peroneal distal: 79.6 biphasic HERMAN proximal: 62.1 biphasic HERMAN distal: 46.4 biphasic The ankle brachial index was not obtainable bilaterally Heavily calcified vessels were seen bilaterally. No stenosis was identified bilaterally IMPRESSION: As above <Electronically signed by Enrico Bustamante > 04/25/21 1531
== END ==
LOC: M RAD 12:30
PROVIDERS: ATTEND Surgery Vascular Surgery
DX: I70.244 Atherosclerosis of native arteries of left leg with ulceration of heel and midfoot (principal)

== ENCOUNTER → 2021-06-28 | Outpatient (REF) | payer MEDICARE ==
[2021-06-28 12:27] LABS: BASO # 0.1 10^3/uL (0.0-0.2); EOS # 0.3 10^3/uL (0.0-0.5); EOS % 3.8 % (0.0-3.0); HEMATOCRIT 44.7 % (42.0-52.0); LYMPH # 1.3 10^3/uL (1.5-5.0); LYMPH % 18.3 % (24.0-44.0); MEAN CORPUSCULAR HEMOGLOBIN 32.8 pg (27.0-33.0); MEAN CORPUSCULAR HGB CONC 33.6 g/dl (32.0-36.5); MEAN CORPUSCULAR VOLUME 97.6 fl (80.0-96.0); MONO # 0.7 10^3/uL (0.0-0.8); MONO % 10.4 % (2.0-8.0); NEUTROPHILS # 4.6 10^3/uL (1.5-8.5); NEUTROPHILS % 65.2 % (36.0-66.0); PLATELET COUNT, AUTOMATED 217 10^3/uL (150-450); RED BLOOD COUNT 4.58 10^6/uL (4.30-6.10); WHITE BLOOD COUNT 7.1 10^3/uL (4.0-10.0)
[2021-06-28 13:07] LABS: ERYTHROCYTE SEDIMENTATION RATE 33 mm/hr (0-20)
[2021-06-28 14:24] LABS: ALBUMIN 3.8 GM/DL (3.2-5.2); ALT/SGPT 19 U/L (12-78); BILIRUBIN,TOTAL 0.4 MG/DL (0.2-1.0); BLOOD UREA NITROGEN 22 MG/DL (7-18); CALCIUM LEVEL 9.3 MG/DL (8.8-10.2); CARBON DIOXIDE LEVEL 26 MEQ/L (21-32); CHLORIDE LEVEL 105 MEQ/L (98-107); CREATININE FOR GFR 0.84 MG/DL (0.70-1.30); GLOMERULAR FILTRATION RATE > 60.0 (>42); GLUCOSE, FASTING 201 MG/DL (70-100); POTASSIUM SERUM 4.5 MEQ/L (3.5-5.1); SODIUM LEVEL 138 MEQ/L (136-145); TOTAL PROTEIN 7.9 GM/DL (6.4-8.2)
[2021-06-29 12:25] LABS: TOTAL 25(OH) VITAMIN D 21.9 NG/ML (30.0-100.0)
[2021-06-29 12:36] LABS: HEPATITIS B SURFACE ANTIGEN NEGATIVE (NEGATIVE)
[2021-06-29 13:04] LABS: HEPATITIS C VIRUS ABY INDEX < 0.0 INDEX (<0.8)
[2021-07-01 15:08] LABS: ANGIOTENSIN 1 CONVERTING ENZYM 17 U/L (14-82); HEPATITIS B CORE ANTIBODY IGG Negative (Negative); VITAMIN D 1,25 DIHYDROXY 28.8 pg/mL (19.9-79.3)
== END ==
LOC: M SFHCRHEU 08:28
PROVIDERS: ATTEND Internal Medicine Rheumatology
DX: R76.8 Other specified abnormal immunological findings in serum (principal); M25.50 Pain in unspecified joint; Z79.899 Other long term (current) drug therapy

== ENCOUNTER → 2021-11-27 | Outpatient (REF) | payer MEDICARE ==
[2021-11-27 13:52] LABS: APPEARANCE, URINE CLEAR (CLEAR); BACTERIA, URINE AUTO NEGATIVE (NEGATIVE); BILIRUBIN, URINE AUTO NEGATIVE (NEGATIVE); BLOOD, URINE BLOOD 1+ (NEGATIVE); COLOR, URINE YELLOW (YELLOW); GLUCOSE, URINE (UA) AUTO NEGATIVE (NEGATIVE); KETONE, URINE AUTO NEGATIVE (NEGATIVE); LEUKOCYTE ESTERASE, URINE AUTO NEGATIVE (NEGATIVE); NITRITE, URINE AUTO NEGATIVE (NEGATIVE); PROTEIN, URINE AUTO NEGATIVE (NEGATIVE); RBC, URINE AUTO 0 /HPF (0-3); SQUAMOUS EPITHELIAL CELL UR AU 0 /HPF (0-6); UROBILINOGEN, URINE AUTO 0.2 mg/dL (0.0-2.0); WBC, URINE AUTO 0 /HPF (0-3)
== END ==
LOC: M SMT 13:00
PROVIDERS: ATTEND Urology
DX: R39.9 Unspecified symptoms and signs involving the genitourinary system (principal)

== ENCOUNTER → 2022-01-23 | Outpatient (CLI) | payer MEDICARE ==
[~2022-01-23] MED LIST changes: +OXYB5TAB10 PO
== END ==
LOC: M LABSMTC 10:04
PROVIDERS: ATTEND Anesthesiology
DX: Z01.818 Encounter for other preprocedural examination (principal); Z11.52 Encounter for screening for COVID-19

== ENCOUNTER 2022-01-28 07:15 | Day surgery (SDC) | payer MEDICARE ==
[~2022-01-28] VITALS: Ht 180.3 cm; Wt 93.4 kg
[~2022-01-28 07:15] MED LIST changes: +BSS IRRIG/VANCO(10MG)/TOBRA(5MG)/EPINEPH(1:1000-0.5CC)500ML BAG-ORONLY IR ONE; +LIDOCAINE 1% SDV 5ML VIAL As Ordered ONE; +LIDOCAINE 3.5 % 1ML OPHTH TOPICAL GEL OU ONE; +OFLOXACIN 0.3 % (OCUFLOX) OPTH SOL 5ML OS ONE; +PHENYLEPHRINE HCL 10 % OPHTH. SOL 5ML OS PRN
[2022-01-28] MEDS: CYCLOPENTOLATE 1% OPHTH SOLN 2 ML BTL OS SCH ×3 (08:21→08:38)
[2022-01-28] MEDS: TROPICAMIDE 1% OPHTH SOLN 2ML OS SCH ×3 (08:21→08:39)
[2022-01-28] MEDS: PHENYLEPHRINE 2.5% OPHTH SOL 2ML OS SCH ×3 (08:21→08:38)
[2022-01-28] MEDS ORDERED: MIDAZOLAM INJ 2MG/2ML VIAL (J2250 PER 1MG) As Ordered ONE (09:17)
[2022-01-28] MEDS ORDERED: fentaNYL 100 MCG/2 ML INJECTION As Ordered ONE (09:17)
[2022-01-28 09:50] VITALS: BP 128/79
== END 2022-01-28 09:52 | disposition home or self-care (01) ==
LOC: M SDC 07:15
PROVIDERS: ATTEND Ophthalmology
DX: H25.12 Age-related nuclear cataract, left eye (principal); E11.3299 Type 2 diabetes mellitus with mild nonproliferative diabetic retinopathy without macular edema, unspecified eye; E11.69 Type 2 diabetes mellitus with other specified complication; R29.818 Other symptoms and signs involving the nervous system; M19.90 Unspecified osteoarthritis, unspecified site; M54.50 Low back pain, unspecified; E78.2 Mixed hyperlipidemia; J44.9 Chronic obstructive pulmonary disease, unspecified; I10 Essential (primary) hypertension; I25.10 Atherosclerotic heart disease of native coronary artery without angina pectoris; Z79.899 Other long term (current) drug therapy; Z79.4 Long term (current) use of insulin; Z79.02 Long term (current) use of antithrombotics/antiplatelets; Z79.82 Long term (current) use of aspirin; Z88.0 Allergy status to penicillin; Z88.8 Allergy status to other drugs, medicaments and biological substances; Z87.891 Personal history of nicotine dependence; Z98.61 Coronary angioplasty status
CPT/HCPCS: 66984; J2250; J3010; V2632

== ENCOUNTER → 2022-02-07 | Outpatient (CLI) | payer MEDICARE ==
[~2022-02-07] MED LIST changes: -BSS IRRIG/VANCO(10MG)/TOBRA(5MG)/EPINEPH(1:1000-0.5CC)500ML BAG-ORONLY IR ONE; -LIDOCAINE 1% SDV 5ML VIAL As Ordered ONE; -LIDOCAINE 3.5 % 1ML OPHTH TOPICAL GEL OU ONE; -OFLOXACIN 0.3 % (OCUFLOX) OPTH SOL 5ML OS ONE; -PHENYLEPHRINE HCL 10 % OPHTH. SOL 5ML OS PRN
== END ==
LOC: M RAD 11:08
PROVIDERS: ATTEND Internal Medicine Pulmonary Disease
DX: Z87.891 Personal history of nicotine dependence (principal)

== ENCOUNTER → 2022-04-02 | Outpatient (REF) | payer MEDICARE ==
[~2022-04-02] MED LIST changes: +LATA0.0015 OU
[2022-04-02 14:49] LABS: APPEARANCE, URINE MANUAL CLEAR (CLEAR); COLOR, URINE MANUAL LT YELLOW (YELLOW); SPECIFIC GRAVITY,URINE MANUAL 1.015 (1.002-1.035)
[2022-04-02 14:50] LABS: BILIRUBIN, URINE MANUAL NEGATIVE (NEGATIVE); BLOOD URINE MANUAL NEGATIVE (NEGATIVE); GLUCOSE, URINE (UA) MANUAL NEGATIVE (NEGATIVE); KETONE, URINE MANUAL NEGATIVE (NEGATIVE); LEUKOCYTE ESTERASE, URINE MAN NEGATIVE (NEGATIVE); NITRITE, URINE MANUAL NEGATIVE (NEGATIVE); PROTEIN, URINE MANUAL NEGATIVE (NEGATIVE); UROBILINOGEN, URINE MANUAL NORMAL (NORMAL)
== END ==
LOC: M SMT 12:51
PROVIDERS: ATTEND Urology
DX: R35.0 Frequency of micturition (principal)

== ENCOUNTER → 2022-04-10 | Outpatient (CLI) | payer MEDICARE | LOC: M LABSMTC 10:47 | PROVIDERS: ATTEND Anesthesiology | DX: Z01.812 Encounter for preprocedural laboratory examination (principal); Z20.822 Contact with and (suspected) exposure to COVID-19 ==

== ENCOUNTER 2022-04-15 10:04 | Day surgery (SDC) | payer MEDICARE ==
[~2022-04-15] VITALS: Ht 180.3 cm; Wt 92.5 kg
[~2022-04-15 10:04] MED LIST changes: +BSS IRRIG/VANCO(10MG)/TOBRA(5MG)/EPINEPH(1:1000-0.5CC)500ML BAG-ORONLY IR ONE; +CYCLOPENTOLATE 1% OPHTH SOLN 2 ML BTL OD SCH; +LIDOCAINE 1% SDV 5ML VIAL As Ordered ONE; +LIDOCAINE 3.5 % 1ML OPHTH TOPICAL GEL OU ONE; +MIDAZOLAM INJ 2MG/2ML VIAL (J2250 PER 1MG) As Ordered ONE; +OFLOXACIN 0.3 % (OCUFLOX) OPTH SOL 5ML OD ONE; +PHENYLEPHRINE 2.5% OPHTH SOL 2ML OD SCH; +PHENYLEPHRINE HCL 10 % OPHTH. SOL 5ML OD PRN; +TROPICAMIDE 1% OPHTH SOLN 2ML OD SCH; +fentaNYL 100 MCG/2 ML INJECTION As Ordered ONE
[2022-04-15 11:24] VITALS: BP 147/74
== END 2022-04-15 11:45 | disposition home or self-care (01) ==
LOC: M SDC 10:04
PROVIDERS: ATTEND Ophthalmology
DX: H25.11 Age-related nuclear cataract, right eye (principal); H57.03 Miosis; I10 Essential (primary) hypertension; E11.42 Type 2 diabetes mellitus with diabetic polyneuropathy; I25.10 Atherosclerotic heart disease of native coronary artery without angina pectoris; M19.90 Unspecified osteoarthritis, unspecified site; J44.9 Chronic obstructive pulmonary disease, unspecified; N32.81 Overactive bladder; Z95.5 Presence of coronary angioplasty implant and graft; Z79.899 Other long term (current) drug therapy; Z79.82 Long term (current) use of aspirin; Z79.02 Long term (current) use of antithrombotics/antiplatelets; Z79.4 Long term (current) use of insulin; Z79.891 Long term (current) use of opiate analgesic; Z88.0 Allergy status to penicillin; Z88.8 Allergy status to other drugs, medicaments and biological substances
CPT/HCPCS: 66982; J2250; J3010; V2632

== ENCOUNTER → 2022-06-17 | Outpatient (CLI) | payer MEDICARE ==
[~2022-06-17] MED LIST changes: -BSS IRRIG/VANCO(10MG)/TOBRA(5MG)/EPINEPH(1:1000-0.5CC)500ML BAG-ORONLY IR ONE; -CYCLOPENTOLATE 1% OPHTH SOLN 2 ML BTL OD SCH; -LIDOCAINE 1% SDV 5ML VIAL As Ordered ONE; -LIDOCAINE 3.5 % 1ML OPHTH TOPICAL GEL OU ONE; -MIDAZOLAM INJ 2MG/2ML VIAL (J2250 PER 1MG) As Ordered ONE; -OFLOXACIN 0.3 % (OCUFLOX) OPTH SOL 5ML OD ONE; -PHENYLEPHRINE 2.5% OPHTH SOL 2ML OD SCH; -PHENYLEPHRINE HCL 10 % OPHTH. SOL 5ML OD PRN; -TROPICAMIDE 1% OPHTH SOLN 2ML OD SCH; -fentaNYL 100 MCG/2 ML INJECTION As Ordered ONE
== END ==
LOC: M RAD 11:54
PROVIDERS: ATTEND Surgery Vascular Surgery
DX: I70.244 Atherosclerosis of native arteries of left leg with ulceration of heel and midfoot (principal)

== ENCOUNTER 2023-03-12 07:45 | Day surgery (SDC) | payer MEDICARE ==
[~2023-03-12] VITALS: Ht 180.3 cm; Wt 89.0 kg
[~2023-03-12 07:45] MED LIST changes: +ALPH600C PO; +CLIN1GEL22 TOP; +EZET10TA21 PO; +IPRA0.00 INH; +MEMA1TAB3 PO; +NS 1,000 ML IV ONE; -OXYB5TAB10 PO; +OXYB5TAB11 PO; +TRES1INJ2 SC; +VITMTA PO
[2023-03-12 09:42] VITALS: BP 118/61; O2SAT 95
== END 2023-03-12 10:07 | disposition home or self-care (01) ==
LOC: M OPP 07:45
PROVIDERS: ATTEND Internal Medicine Gastroenterology
DX: Z12.11 Encounter for screening for malignant neoplasm of colon (principal); D12.6 Benign neoplasm of colon, unspecified; K64.0 First degree hemorrhoids; K57.30 Diverticulosis of large intestine without perforation or abscess without bleeding; K21.00 Gastro-esophageal reflux disease with esophagitis, without bleeding; K44.9 Diaphragmatic hernia without obstruction or gangrene; R12 Heartburn; E10.9 Type 1 diabetes mellitus without complications; E11.9 Type 2 diabetes mellitus without complications; Z95.5 Presence of coronary angioplasty implant and graft; Z87.891 Personal history of nicotine dependence; Z79.2 Long term (current) use of antibiotics; Z79.4 Long term (current) use of insulin; Z79.51 Long term (current) use of inhaled steroids; Z79.82 Long term (current) use of aspirin; Z88.0 Allergy status to penicillin; Z88.8 Allergy status to other drugs, medicaments and biological substances

== ENCOUNTER → 2023-03-28 | Outpatient (CLI) | payer MEDICARE ==
[~2023-03-28] MED LIST changes: -NS 1,000 ML IV ONE
== END ==
LOC: M RAD 14:03
PROVIDERS: ATTEND Internal Medicine Pulmonary Disease
DX: Z12.2 Encounter for screening for malignant neoplasm of respiratory organs (principal); Z87.891 Personal history of nicotine dependence

== ENCOUNTER → 2024-01-06 | Outpatient (CLI) | payer MEDICARE ==
[~2024-01-06] MED LIST changes: -OXYB5TAB11 PO; +OXYB5TAB14 PO; +RAMI10CA64 PO; -RAMI1CAP26 PO
== END ==
LOC: M RAD 14:08
PROVIDERS: ATTEND Psychiatry & Neurology Neurology
DX: R26.2 Difficulty in walking, not elsewhere classified (principal); M26.81 Anterior soft tissue impingement; M48.01 Spinal stenosis, occipito-atlanto-axial region; I70.92 Chronic total occlusion of artery of the extremities

== ENCOUNTER → 2024-03-26 | Outpatient (REF) | payer MEDICARE | LOC: M SMT 09:59 | PROVIDERS: ATTEND Urology | DX: C61 Malignant neoplasm of prostate (principal); R97.20 Elevated prostate specific antigen [PSA]; Z79.899 Other long term (current) drug therapy; Z88.0 Allergy status to penicillin; Z88.8 Allergy status to other drugs, medicaments and biological substances; Z82.49 Family history of ischemic heart disease and other diseases of the circulatory system; Z83.3 Family history of diabetes mellitus; Z83.79 Family history of other diseases of the digestive system; Z87.891 Personal history of nicotine dependence ==

== ENCOUNTER → 2024-04-28 | Outpatient (CLI) | payer MEDICARE ==
[~2024-04-28] MED LIST changes: +ISOVUE-370 76% 100ML VIAL As Ordered ONE
== END ==
LOC: M RAD 08:52
PROVIDERS: ATTEND Urology
DX: C61 Malignant neoplasm of prostate (principal); R59.0 Localized enlarged lymph nodes; I71.43 Infrarenal abdominal aortic aneurysm, without rupture; K59.09 Other constipation; N28.1 Cyst of kidney, acquired; I25.10 Atherosclerotic heart disease of native coronary artery without angina pectoris
CPT/HCPCS: 74177; Q9967

== ENCOUNTER → 2024-06-09 | Outpatient (CLI) | payer MEDICARE ==
[~2024-06-09] MED LIST changes: -ISOVUE-370 76% 100ML VIAL As Ordered ONE
== END ==
LOC: M ONCR 10:43
PROVIDERS: ATTEND General Practice
DX: C61 Malignant neoplasm of prostate (principal); R97.20 Elevated prostate specific antigen [PSA]; Z86.59 Personal history of other mental and behavioral disorders; Z79.83 Long term (current) use of bisphosphonates; Z87.891 Personal history of nicotine dependence; Z88.0 Allergy status to penicillin; Z88.1 Allergy status to other antibiotic agents; Z88.8 Allergy status to other drugs, medicaments and biological substances; Z79.4 Long term (current) use of insulin; Z79.82 Long term (current) use of aspirin; Z79.899 Other long term (current) drug therapy; Z79.02 Long term (current) use of antithrombotics/antiplatelets; Z59.82 Transportation insecurity

== ENCOUNTER 2024-06-29 10:45 | Outpatient (RCR) | payer MEDICARE | END 2024-07-02 | LOC: M ONCR 10:45 | PROVIDERS: ATTEND General Practice | DX: Z51.0 Encounter for antineoplastic radiation therapy (principal); C61 Malignant neoplasm of prostate ==

== ENCOUNTER → 2024-07-02 | Outpatient (CLI) | payer MEDICARE ==
[~2024-07-02] VITALS: Ht 182.9 cm; Wt 90.9 kg
[~2024-07-02] MED LIST changes: +ACETAMINOPHEN 325 MG TAB PO PRN; +HEPARIN 1,000UNITS/ML 10ML VIAL (FOR RADIOLOGY & DIALYSIS ONLY) As Ordered ONE; +ISOVUE-300 61% 100ML VIAL As Ordered ONE; +LIDOCAINE 1% MDV 20ML VIAL As Ordered ONE; +MIDAZOLAM INJ 2MG/2ML VIAL As Ordered ONE; +NS (Normal Saline) 0.9% 1,000 ML IV SCH; +ONDANSETRON 4MG 2ML VIAL IV PRN; +PERCOCET 5MG/325MG TAB PO PRN; +fentaNYL 100 MCG/2 ML INJECTION As Ordered ONE
[2024-07-02 08:25] VITALS: TEMP 97.4
[2024-07-02 08:46] LABS: HEMATOCRIT 39.4 % (42.0-52.0); HEMOGLOBIN 13.4 g/dl (13.5-17.5); MEAN CORPUSCULAR HEMOGLOBIN 33.2 pg (27.0-33.0); MEAN CORPUSCULAR VOLUME 97.5 fl (80.0-96.0); PLATELET COUNT, AUTOMATED 235 10^3/uL (150-450); RED BLOOD COUNT 4.04 10^6/uL (4.30-6.10); WHITE BLOOD COUNT 7.4 10^3/uL (4.0-10.0)
[2024-07-02 09:12] LABS: BLOOD UREA NITROGEN 19 MG/DL (9-23); CALCIUM LEVEL 8.9 MG/DL (8.3-10.6); CARBON DIOXIDE LEVEL 27 MMOL/L (20-31); CHLORIDE LEVEL 107 MMOL/L (98-107); CREATININE FOR GFR 0.73 MG/DL (0.70-1.30); GLOMERULAR FILTRATION RATE > 60.0 (>42); GLUCOSE, FASTING 188 MG/DL (74-106); SODIUM LEVEL 140 MMOL/L (136-145)
[2024-07-02 09:15] LABS: INR 1.05
[2024-07-02 14:00] VITALS: BP 127/64; O2SAT 96
== END ==
LOC: M IRPRO 08:13
PROVIDERS: ATTEND Radiology Diagnostic Radiology
DX: I73.9 Peripheral vascular disease, unspecified (principal); Z95.828 Presence of other vascular implants and grafts
CPT/HCPCS: 37224; 80048; 85027; 85610; 99152; 99153; C1725; C1760; C1887; C1894; J2250; J3010; Q9967

== ENCOUNTER → 2024-07-21 | Outpatient (POV) | payer MEDICARE ==
[~2024-07-21] VITALS: Ht 182.9 cm; Wt 90.9 kg
[~2024-07-21] MED LIST changes: -ACETAMINOPHEN 325 MG TAB PO PRN; -HEPARIN 1,000UNITS/ML 10ML VIAL (FOR RADIOLOGY & DIALYSIS ONLY) As Ordered ONE; -ISOVUE-300 61% 100ML VIAL As Ordered ONE; +LACT20EL PO; -LIDOCAINE 1% MDV 20ML VIAL As Ordered ONE; -MIDAZOLAM INJ 2MG/2ML VIAL As Ordered ONE; -NS (Normal Saline) 0.9% 1,000 ML IV SCH; -ONDANSETRON 4MG 2ML VIAL IV PRN; -PERCOCET 5MG/325MG TAB PO PRN; -fentaNYL 100 MCG/2 ML INJECTION As Ordered ONE
[2024-07-21 15:20] VITALS: BP 132/84; O2SAT 99
== END ==
LOC: M IRPOV 14:54
PROVIDERS: ATTEND Surgery
DX: Z48.812 Encounter for surgical aftercare following surgery on the circulatory system (principal); I70.248 Atherosclerosis of native arteries of left leg with ulceration of other part of lower leg; C61 Malignant neoplasm of prostate; E11.51 Type 2 diabetes mellitus with diabetic peripheral angiopathy without gangrene; Z79.01 Long term (current) use of anticoagulants; Z79.82 Long term (current) use of aspirin; Z95.828 Presence of other vascular implants and grafts

== ENCOUNTER → 2024-07-30 | Outpatient (RCR) | payer MEDICARE | LOC: M ONCR 07-14 15:49 | PROVIDERS: ATTEND General Practice | DX: Z51.0 Encounter for antineoplastic radiation therapy (principal); C61 Malignant neoplasm of prostate ==

== ENCOUNTER 2024-08-23 16:12 | Outpatient (RCR) | payer MEDICARE ==
[~2024-08-23 16:12] MED LIST changes: +TRIA1CR80 TOP
== END 2024-08-30 ==
LOC: M ONCR 16:12
PROVIDERS: ATTEND General Practice
DX: Z51.0 Encounter for antineoplastic radiation therapy (principal); C61 Malignant neoplasm of prostate

== ENCOUNTER → 2024-09-08 | Outpatient (POV) | payer MEDICARE ==
[~2024-09-08] VITALS: Ht 182.9 cm; Wt 90.9 kg
[~2024-09-08] MED LIST changes: +PERC5TAB12 PO
[2024-09-08 15:55] VITALS: BP 144/82; O2SAT 98
== END ==
LOC: M IRPOV 15:47
PROVIDERS: ATTEND Radiology Diagnostic Radiology
DX: I70.242 Atherosclerosis of native arteries of left leg with ulceration of calf (principal); L97.419 Non-pressure chronic ulcer of right heel and midfoot with unspecified severity; Z95.828 Presence of other vascular implants and grafts; Z88.0 Allergy status to penicillin; Z88.8 Allergy status to other drugs, medicaments and biological substances

== ENCOUNTER 2024-09-21 12:27 | Emergency (ER) | payer MEDICARE ==
[~2024-09-21] VITALS: Ht 182.9 cm; Wt 91.8 kg
[~2024-09-21 12:27] MED LIST changes: -FLOM0.4C39 PO; +TAMS-18 PO
[2024-09-21] MEDS ORDERED: MYRB50TA (13:50)
[2024-09-21 15:56] LABS: BASO # 0.1 10^3/uL (0.0-0.2); BASO % 0.8 % (0.0-1.0); EOS # 0.2 10^3/uL (0.0-0.5); EOS % 1.7 % (0.0-3.0); HEMATOCRIT 36.4 % (42.0-52.0); HEMOGLOBIN 11.9 g/dl (13.5-17.5); LYMPH # 0.6 10^3/uL (1.5-5.0); MEAN CORPUSCULAR HEMOGLOBIN 31.3 pg (27.0-33.0); MEAN CORPUSCULAR HGB CONC 32.7 g/dl (32.0-36.5); MEAN CORPUSCULAR VOLUME 95.8 fl (80.0-96.0); MONO % 11.3 % (2.0-8.0); NEUTROPHILS # 7.2 10^3/uL (1.5-8.5); NEUTROPHILS % 78.8 % (36.0-66.0); PLATELET COUNT, AUTOMATED 281 10^3/uL (150-450); WHITE BLOOD COUNT 9.2 10^3/uL (4.0-10.0)
[2024-09-21 17:38] LABS: C REACTIVE PROTEIN QUANTITATIV 8.26 MG/DL (<1.0)
[2024-09-21 17:47] LABS: PROCALCITONIN 0.07 ng/ml
[2024-09-21 17:55] LABS: BLOOD UREA NITROGEN 20 MG/DL (9-23); CARBON DIOXIDE LEVEL 27 MMOL/L (20-31); CHLORIDE LEVEL 104 MMOL/L (98-107); GLOMERULAR FILTRATION RATE > 90.0 (>42); GLUCOSE, FASTING 85 MG/DL (74-106); POTASSIUM SERUM 4.5 MMOL/L (3.5-5.1); SODIUM LEVEL 139 MMOL/L (136-145)
[2024-09-21 18:45] VITALS: BP 105/62; TEMP 97.6; O2SAT 95
== END 2024-09-21 18:56 | disposition home or self-care (01) ==
LOC: M ED 12:27
DX: L89.610 Pressure ulcer of right heel, unstageable (principal); E11.9 Type 2 diabetes mellitus without complications; I10 Essential (primary) hypertension; E78.5 Hyperlipidemia, unspecified; J44.9 Chronic obstructive pulmonary disease, unspecified; G47.33 Obstructive sleep apnea (adult) (pediatric); F03.90 Unspecified dementia, unspecified severity, without behavioral disturbance, psychotic disturbance, mood disturbance, and anxiety; I25.10 Atherosclerotic heart disease of native coronary artery without angina pectoris; Z87.891 Personal history of nicotine dependence; Z79.4 Long term (current) use of insulin; Z79.82 Long term (current) use of aspirin; Z79.899 Other long term (current) drug therapy; Z88.0 Allergy status to penicillin; Z88.8 Allergy status to other drugs, medicaments and biological substances